=== PATIENT | female | born 1965 | race Two or more races ===

== ENCOUNTER 2020-06-18 06:27 | Inpatient (IN) | payer OTHER ==
[~2020-06-18] VITALS: Ht 162.6 cm; Wt 118.4 kg
--- NOTE | 2020-06-18 06:30 | NUR ---
PT NICOLA FROM HOME FOR LOW BLOOD SUGAR ON SCENE. PT GIVEN IM GLUCAGON EN ROUTE. PER PT'S ROOMMATE, PT NOT BEING ABLE TO EAT X COUPLE OF DAYS. PT AAOX4, VSS,RESPIRATIONS EVEN AND UNLABORED ON RA W/ NAD NOTED. PT CONNECTED TO THE ESCROW OFFICER AND POX
--- NOTE | 2020-06-18 06:48 | NUR ---
BLOOD COLLECTED AND SENT TO LAB
--- NOTE | 2020-06-18 06:52 | NUR ---
PT UNABLE TO PROVIDE URINE AT THIS TIME. MD LOAIZA
--- NOTE | 2020-06-18 06:56 | NUR ---
PT REFUSING TO TAKE JUICE AND SNACKS.
[2020-06-18 06:59] LABS: BASOPHILS % (AUTO) 0.2 % (0.0-2.0); EOSINOPHILS % (AUTO) 0.1 % (0.0-6.0); HEMATOCRIT 45 % (33-45); HEMOGLOBIN 14.6 g/dL (11.5-14.8); LYMPHOCYTES # (AUTO) 0.5 /CMM (0.8-4.8); LYMPHOCYTES % (AUTO) 11.4 % (20.0-44.0); MEAN CORPUSCULAR HGB CONC 33 g/dl (31.0-36.0); MEAN CORPUSCULAR VOLUME 104 fL (82-100); MONOCYTES # (AUTO) 0.4 /CMM (0.1-1.30); MONOCYTES % (AUTO) 10.4 % (2.0-12.0); NEUTROPHILS # (AUTO) 3.3 /CMM (1.8-8.9); NEUTROPHILS % (AUTO) 77.9 % (43.0-81.0); RED BLOOD CELL COUNT(AUTO) 4.28 MIL/uL (4.0-5.2); WHITE BLOOD COUNT (AUTO) 4.2 K/uL (4.3-11.0)
[2020-06-18] MEDS ORDERED: IV D5/ 0.9% NACL 1,000 ML IV ONE (07:00)
[2020-06-18 07:16] LABS: ALANINE AMINOTRANSFERASE 119 U/L (12-78); ALBUMIN 4.4 g/dL (3.4-5.0); ALCOHOL, BLOOD 92 mg/dL (0-0); ALKALINE PHOSPHATASE 87 U/L (46-116); ASPARTATE AMINOTRANSFERASE 316 U/L (15-37); BILIRUBIN,DIRECT 5.6 mg/dL (0.0-0.2); BILIRUBIN,TOTAL 7.5 mg/dL (0.2-1.0); CALCIUM, SERUM 9.5 mg/dL (8.5-10.1); CARBON DIOXIDE 19 mmol/L (21-32); CHLORIDE 84 mmol/L (98-107); CREATININE 0.6 mg/dL (0.6-1.3); POTASSIUM 3.6 mmol/L (3.5-5.1); SODIUM SERUM 129 mmol/L (136-145); TOTAL PROTEIN, SERUM 7.9 g/dL (6.4-8.2); UREA NITROGEN, BLOOD 7 mg/dL (7-18)
[2020-06-18 07:17] LABS: ACETAMINOPHEN 0 ug/ml (10-30); GLUCOSE 30 mg/dL (74-106)
[2020-06-18 07:30] LABS: PLATELET COUNT (AUTO) 44 /CMM (150-450)
--- NOTE | 2020-06-18 07:30 | NUR ---
LAB CALLED ANSELMO Chatman
[2020-06-18 07:32] LABS: LYMPHOCYTES % (MANUAL) 20 % (16-48); MONOCYTES % (MANUAL) 6 % (0-11.0); NEUTROPHILS % (MANUAL) 74 (42-76)
[2020-06-18] MEDS ORDERED: ALPR0.5T8 PO (08:25)
[2020-06-18] MEDS ORDERED: GABA-536 PO (08:25)
[2020-06-18] MEDS ORDERED: ESCI10TA PO (08:25)
[2020-06-18] MEDS ORDERED: ONDANSETRON HCL/PF - ER 4 MG/2 ML VIAL IV ONE (08:30)
--- NOTE | 2020-06-18 08:32 | NUR ---
COVID SWAB DONE AND SENT TO LAB
[2020-06-18] MEDS ORDERED: ONDANSETRON HCL/PF 4 MG/2 ML VIAL ONE (10:00)
--- NOTE | 2020-06-18 10:27 | NUR ---
pt still unable to provide urine specimen. pt tstates she doesnt feel the need to urinate at the moment,. made aware.
--- NOTE | 2020-06-18 11:20 | NUR ---
[facility] BED. 324-2
[2020-06-18] MEDS ORDERED: HYDROCODONE/APAP 5/325MG TABLET PO PRN (11:30)
[2020-06-18] MEDS: MULTIVITAMINS,THERAGRAN 1 UDTAB TABLET PO SCH (11:30)
[2020-06-18] MEDS: THIAMINE HCL 100 MG TABLET PO SCH (11:30)
[2020-06-18] MEDS ORDERED: ACETAMINOPHEN 325 MG TABLET PO PRN (11:30)
[2020-06-18] MEDS: FOLIC ACID 1 MG TABLET PO SCH (11:30)
[2020-06-18] MEDS ORDERED: MAGNESIUM HYDROXIDE 30 ML UDC PO PRN (11:30)
[2020-06-18] MEDS ORDERED: ONDANSETRON HCL/PF 4 MG/2 ML VIAL IVP PRN (11:30)
[2020-06-18] MEDS ORDERED: MAG HYDROX/AL HYDROX/SIMETH 30 ML UDC PO PRN (11:30)
[2020-06-18 12:10] LABS: BILIRUBIN,URINE LARGE (NEGATIVE); BLOOD, URINE Moderate Ery/uL (NEGATIVE); COLOR,URINE DARK YELLOW (YELLOW); LEUKOCYTE ESTERASE ,URINE Negative (NEGATIVE); NITRITE, URINE Negative (NEGATIVE); PROTEIN,URINE 30 mg/dl (NEGATIVE); UGLUCOSE Negative (NEGATIVE)
[2020-06-18 12:32] LABS: BACTERIA,URINE Moderate /HPF (None Seen); RBC,URINE 0-2 /HPF (0-2); WBC,URINE 0-2 /HPF (0-3)
--- NOTE | 2020-06-18 12:55 | NUR ---
SUSY LOPEZ CRE VEHICLE CARE SPECIALIST UPDATED WITH CLINICALS
[2020-06-18] MEDS: GABAPENTIN 400 MG CAPSULE PO SCH ×2 (13:00→17:45)
[2020-06-18] MEDS ORDERED: DEXTROSE 10% IN WATER 250 ML BAG IV ONE (13:00)
[2020-06-18] MEDS ORDERED: DEXTROSE 10% IN WATER 250 ML IV ONE (13:00)
--- NOTE | 2020-06-18 14:11 | NUR ---
bs rechecked now at 73
--- NOTE | 2020-06-18 14:30 | NUR ---
pt trasnferred to rm 324-2. yazan trammell rn by bedside,.
[2020-06-18] MEDS: IV D5/0.45 NACL 1,000 ML IV PRN (14:36)
[2020-06-18] MEDS: LORAZEPAM INJ 2 MG/ML VIAL IV PRN ×2 (14:43→22:41)
--- NOTE | 2020-06-18 14:45 | NUR ---
MS RN NOTES RECEIVED PATIENT FROM ER. PATIENT ALERT, ORIENTED X4. NO SOB OR ACUTE DISTRESS NOTES. PATIENT IS NAUSEAS AND VOMITING. PATIENT ORIENTED TO ROOM. CALL LIGHT WITHIN REACH. BED IN LOW LOCKED POSITION. SAFETY MEASURES IN PLACE. ADMINISTERED ZOFRAN AND STARTED ON IV FLUIDS. WILL CONTINUE TO MONITOR.
[2020-06-18 16:00] VITALS: BP 129/92
--- NOTE | 2020-06-18 18:51 | NUR ---
MS RN NOTES PATIENT IN BED RESTING NO SOB OR ACUTE DISTRESS NOTED. PATIENTS NAUSEA IMPROVED. PATIENT EATING DINNER. ALL DUE MEDICATIONS ADMINISTERED. ALL NEEDS MET. WILL ENDORSE CARE TO PM SHIFT.
--- NOTE | 2020-06-18 19:06 | NUR ---
MS RN OPENING NOTES PATIENT AWAKE IN BED. A/OX4. ON RA; NO C/O SOB; BREATHING IS EVEN AND UNLABORED. NO C/O PAIN. IV PRESENT ON RIGHT HAND, SIZE 22, INTACT & PATENT WITH D5 1/2 NS RUNNING AT 80 ML/HR. SAFETY MEASURES IN PLACE AND PATIENT'S NEEDS MET. BED LOCKED, HOB ELEVATED, SIDE RAILS X2, CALL LIGHT WITHIN REACH. WILL CONTINUE TO MONITOR.
[2020-06-18] MEDS: ALPRAZOLAM 0.5 MG TABLET PO PRN (19:42)
--- NOTE | 2020-06-19 07:52 | NUR ---
MS RN CLOSING NOTES PATIENT AWAKE IN BED. A/OX4. ON RA; NO C/O SOB; BREATHING IS EVEN AND UNLABORED. NO C/O PAIN. IV PRESENT ON LEFT FA, SIZE 24, INTACT & PATENT, HEP LOCKED AT THIS TIME. SAFETY MEASURES IN PLACE AND PATIENT'S NEEDS MET. BED LOCKED, HOB ELEVATED, SIDE RAILS X2, CALL LIGHT WITHIN REACH. ENDORSED TO DAY SHIFT RN PLAN OF CARE.
[2020-06-19 08:00] VITALS: BP 146/79
[2020-06-19 08:12] LABS: BASOPHILS % (AUTO) 0.4 % (0.0-2.0); EOSINOPHILS % (AUTO) 0.2 % (0.0-6.0); HEMATOCRIT 40 % (33-45); HEMOGLOBIN 13.5 g/dL (11.5-14.8); LYMPHOCYTES # (AUTO) 0.6 /CMM (0.8-4.8); LYMPHOCYTES % (AUTO) 20.9 % (20.0-44.0); MEAN CORPUSCULAR HGB CONC 34 g/dl (31.0-36.0); MEAN CORPUSCULAR VOLUME 101 fL (82-100); MONOCYTES # (AUTO) 0.4 /CMM (0.1-1.30); MONOCYTES % (AUTO) 14.9 % (2.0-12.0); NEUTROPHILS # (AUTO) 1.9 /CMM (1.8-8.9); NEUTROPHILS % (AUTO) 63.6 % (43.0-81.0); RED BLOOD CELL COUNT(AUTO) 4.01 MIL/uL (4.0-5.2)
[2020-06-19 08:22] LABS: PLATELET COUNT (AUTO) 37 /CMM (150-450)
[2020-06-19] MEDS: ESCITALOPRAM OXALATE (10 MG) 10 MG TABLET PO SCH (08:26)
[2020-06-19] MEDS: THIAMINE HCL 100 MG TABLET PO SCH (08:26)
[2020-06-19] MEDS: FOLIC ACID 1 MG TABLET PO SCH (08:26)
[2020-06-19] MEDS: MULTIVITAMINS,THERAGRAN 1 UDTAB TABLET PO SCH (08:26)
[2020-06-19] MEDS: GABAPENTIN 400 MG CAPSULE PO SCH ×3 (08:26→17:23)
--- NOTE | 2020-06-19 08:30 | NUR ---
RN NOTES CALL REPORTING FROM LAB REPORTING K: 2.6,PHOS : 0.5 AND PLT: 57 DR. ROLA CONTEH MADE AWARE STATES WILL PUT IN ORDERS.
[2020-06-19 08:38] LABS: ALBUMIN 3.7 g/dL (3.4-5.0); BILIRUBIN,TOTAL 7.4 mg/dL (0.2-1.0); CALCIUM, SERUM 9.6 mg/dL (8.5-10.1); MAGNESIUM 2.2 mg/dL (1.8-2.4); TOTAL PROTEIN, SERUM 6.7 g/dL (6.4-8.2)
[2020-06-19 08:46] LABS: THYROID STIMULATING HORMONE 2.788 uIU/mL (0.358-3.74)
[2020-06-19 09:50] LABS: PHOSPHORUS 0.5 mg/dL (2.5-4.9); POTASSIUM 2.6 mmol/L (3.5-5.1)
[2020-06-19] MEDS ORDERED: LORAZEPAM INJ 2 MG/ML VIAL IV PRN (11:00)
[2020-06-19] MEDS ORDERED: Thiamine 300 MG in IV D5W 50 ML IV ONE (11:30)
--- NOTE | 2020-06-19 13:21 | NUR ---
SW Consult: SW consult was requested due to substance abuse. Pt is a 54 year old female who was admitted at [facility] on 06/18/2020 due to Hypoglycemia. Patient appeared with euthymic mood. Patient was cooperative while this senior copywriter was conducting the assessment. Patient reported she lives at [address] [place] [address], ([phone]). Patient stated she lives with her roommate. Patient stated she has been struggling with alcohol abuse. She reported she has been drinking since the age 21 and has been on and off with her drinking. Patient stated it has become worse because of COVID 19 and losing her job. Patient denies suicidal or homicidal ideation. This senior copywriter briefly conducting substance Abuse Intervention and patient stated she would want resources from this SW. Patient was provided with a brief substance abuse intervention and referred to [facility] , [facility] , and [facility] .
[2020-06-19] MEDS: POTASSIUM PHOSPHATE MM 7.5 MMOL in IV NS 0.9% 100 ML IV SCH ×2 (13:22→17:00)
--- NOTE | 2020-06-19 13:26 | NUR ---
SW Substance Abuse Intervention: This functional tester typewriters briefly conducting substance Abuse Intervention and patient stated she would want resources from this SW. Patient was provided with a brief substance abuse intervention and referred to [facility] , [facility] , and [facility] .
--- NOTE | 2020-06-19 15:15 | NUR ---
MS RN NOTES MIDLINE NURSE AT BEDSIDE INSERTING MIDLINE AFTER MULTIPLE ATTEMPTS OF PERIPHERAL IV INSERTION.
[2020-06-19] MEDS: POTASSIUM CL. PREMIX PERIPHER. 50 ML IV SCH ×4 (15:36→21:00)
[2020-06-19 16:00] VITALS: BP 134/81
[2020-06-19] MEDS: K PHOS NEUTRAL 250 MG TABLET PO SCH (17:24)
--- NOTE | 2020-06-19 19:30 | NUR ---
MS RN NOTE: PATIENT RESTING IN BED, NO ACUTE DISTRESS NOTED. BREATHING EVEN AND UNLABORED, NO SOB NOTED. MIDLINE TO RUDDY IN PLACE, INFUSING D5 1/2 NS AT 80ML/HR. BED LOCKED AND IN LOWEST POSITION, CALL LIGHT IN REACH. WILL CONTINUE TO MONITOR.
[2020-06-19 20:00] VITALS: BP 124/81
--- NOTE | 2020-06-20 03:00 | NUR ---
MS RN NOTE: PATIENT SLEEPING IN BED, NO ACUTE DISTRESS NOTED. BREATHING EVEN AND UNLABORED, NO SOB NOTED. MIDLINE TO RUDDY IN PLACE, INFUSING D5 1/2 NS AT 80ML/HR. BED LOCKED AND IN LOWEST POSITION, CALL LIGHT IN REACH. WILL CONTINUE TO MONITOR.
--- NOTE | 2020-06-20 06:05 | NUR ---
MS RN NOTE: PATIENT RESTING IN BED, NO ACUTE DISTRESS NOTED. BREATHING EVEN AND UNLABORED, NO SOB NOTED. MIDLINE TO RUDDY IN PLACE, INFUSING D5 1/2 NS AT 80ML/HR. BED LOCKED AND IN LOWEST POSITION, CALL LIGHT IN REACH. WILL ENDORSE TO DAY NURSE TO CONTINUE WITH PLAN OF CARE.
--- NOTE | 2020-06-20 07:36 | NUR ---
MS RN NOTES PATIENT RECEIVED IN BED SLEEPING EASILY AWAKEN BY NAME AND LIGHT TOUCH, ALERT AND ORIENTED X 4, PATIENT ON ROOM AIR WITH NO SIGNS OF RESPIRATORY DISTRESS NOTED AT THIS TIME, WITH EVEN NON-LABORED BREATHING, WITH NO SOB NOTED. SKIN WARM AND DRY TO TOUCH, IV ACCESS INTACT AND PATENT. PATIENT PRESENTING WITH NO PAIN OR DISCOMFORT AT THIS TIME. SAFETY PRECAUTIONS IMPLEMENTED WITH BED LOCKED, BED ALARM ON, BED IN THE LOWEST POSITION, BILATERAL SIDE RAILS UP, AND CALL LIGHT WITHIN EASY REACH OF THE PATIENT. WILL CONTINUE TO MONITOR PATIENT.
[2020-06-20 08:00] VITALS: BP 144/86
[2020-06-20] MEDS: MULTIVITAMINS,THERAGRAN 1 UDTAB TABLET PO SCH (08:31)
[2020-06-20] MEDS: FOLIC ACID 1 MG TABLET PO SCH (08:31)
[2020-06-20 08:32] LABS: BASOPHILS % (AUTO) 0.4 % (0.0-2.0); EOSINOPHILS % (AUTO) 0.8 % (0.0-6.0); HEMATOCRIT 43 % (33-45); HEMOGLOBIN 14.4 g/dL (11.5-14.8); LYMPHOCYTES # (AUTO) 1.8 /CMM (0.8-4.8); LYMPHOCYTES % (AUTO) 43.3 % (20.0-44.0); MEAN CORPUSCULAR HGB CONC 33 g/dl (31.0-36.0); MEAN CORPUSCULAR VOLUME 101 fL (82-100); MONOCYTES # (AUTO) 0.6 /CMM (0.1-1.30); MONOCYTES % (AUTO) 13.4 % (2.0-12.0); NEUTROPHILS # (AUTO) 1.8 /CMM (1.8-8.9); NEUTROPHILS % (AUTO) 42.1 % (43.0-81.0); RED BLOOD CELL COUNT(AUTO) 4.27 MIL/uL (4.0-5.2); WHITE BLOOD COUNT (AUTO) 4.2 K/uL (4.3-11.0)
[2020-06-20] MEDS: THIAMINE HCL 100 MG TABLET PO SCH (08:32)
[2020-06-20] MEDS: GABAPENTIN 400 MG CAPSULE PO SCH ×3 (08:33→16:21)
[2020-06-20] MEDS: K PHOS NEUTRAL 250 MG TABLET PO SCH ×2 (08:33→16:21)
[2020-06-20] MEDS: ESCITALOPRAM OXALATE (10 MG) 10 MG TABLET PO SCH (08:33)
[2020-06-20] MEDS: IV D5/0.45 NACL 1,000 ML IV PRN (08:33)
[2020-06-20 08:44] LABS: ALBUMIN 3.8 g/dL (3.4-5.0); BILIRUBIN,TOTAL 6.3 mg/dL (0.2-1.0); CALCIUM, SERUM 9.8 mg/dL (8.5-10.1); CREATININE 0.9 mg/dL (0.6-1.3); MAGNESIUM 2.2 mg/dL (1.8-2.4); TOTAL PROTEIN, SERUM 7.1 g/dL (6.4-8.2)
[2020-06-20 08:54] LABS: PLATELET COUNT (AUTO) 46 /CMM (150-450)
[2020-06-20 09:51] LABS: POTASSIUM 2.8 mmol/L (3.5-5.1)
[2020-06-20 09:52] LABS: PHOSPHORUS 0.9 mg/dL (2.5-4.9)
--- NOTE | 2020-06-20 11:20 | NUR ---
MS RN NOTES INFORMED HOSPITALIST ROLA CONTEH DNP, ABOUT PATIENT'S POTASSIUM OF 2.8, AND PHOSPHORUS 0.9, AND PLATELET OF 46. ORDERED POTASSIUM CHLORIDE, 40 MEQ, AND POTASSIUM PHOSPHATE, WILL CARRY OUT ORDERS AND CONTINUE TO MONITOR PATIENT.
[2020-06-20] MEDS: POTASSIUM PHOSPHATE MM 7.5 MMOL in IV NS 0.9% 100 ML IV SCH ×2 (12:47→15:41)
[2020-06-20] MEDS: POTASSIUM CL. PREMIX PERIPHER. 50 ML IV SCH ×4 (12:47→15:58)
[2020-06-20 16:00] VITALS: BP 132/57
--- NOTE | 2020-06-20 16:22 | NUR ---
MS RN NOTES ADMINISTERED INFLUENZA VACCINE PATIENT REQUESTED.
[2020-06-20] MEDS ORDERED: INFLUENZA VACCINE 2020-21 0.5 ML DISP.SYRIN IM ONE (17:00)
--- NOTE | 2020-06-20 18:00 | NUR ---
MS RN NOTES TOOK STOOL SPECIMEN TO LABORATORY.
--- NOTE | 2020-06-20 18:28 | NUR ---
MS RN NOTES PATIENT IN BED RESTING COMFORTABLY, ALERT AND ORIENTED X 4, PATIENT ON ROOM AIR WITH NO SIGNS OF RESPIRATORY DISTRESS NOTED AT THIS TIME, WITH EVEN NON-LABORED BREATHING, WITH NO SOB NOTED. SKIN KEPT CLEAN, WARM AND DRY TO TOUCH, IV ACCESS INTACT AND PATENT. PATIENT PRESENTING WITH NO PAIN OR DISCOMFORT AT THIS TIME. MET ALL OF PATIENT'S NEEDS. SAFETY PRECAUTIONS IMPLEMENTED WITH BED LOCKED, BED ALARM ON, BED IN THE LOWEST POSITION, BILATERAL SIDE RAILS UP, AND CALL LIGHT WITHIN EASY REACH OF THE PATIENT. WILL ENDORSE PLAN OF CARE TO UPCOMING RN.
[2020-06-20 20:00] VITALS: BP 119/76
[2020-06-20 22:25] VITALS: BP 126/78
--- NOTE | 2020-06-21 02:00 | NUR ---
RN NOTES: PT. REFUSED D5 1/2 NS 80 ML HR ,ENCOURAGED X3 RISKS AND BENEFITS EXPLINED , CHARGE NURSE MADE AWRE ,PER I DONT WANTS ANY IV FLUIDS I AM OK AND IV FLUIDS MAKING ME SICK ,PT. STRONGLY REDUSED , AND ENCOURAGED PT. TO DRINKS PO FLUIDS ,WILL CONTINUITY WITH CARE.
--- NOTE | 2020-06-21 06:54 | NUR ---
MS RN NOTE: PATIENT RESTING IN BED, NO ACUTE DISTRESS NOTED. BREATHING EVEN AND UNLABORED, NO SOB NOTED. MIDLINE TO RUDDY IN PLACE, ALL NEEDS ATTENDED ANTICIPATED.ENCOURAGED PT. TO TAKE ORAL FLUIDS TOLERATE, BED LOCKED AND IN LOWEST POSITION, CALL LIGHT IN REACH. WILL CONTINUE TO MONITOR.
--- NOTE | 2020-06-21 07:35 | NUR ---
MS RN NOTES PATIENT RECEIVED IN BED SLEEPING EASILY AWAKEN BY NAME AND LIGHT TOUCH, ALERT AND ORIENTED X 4, PATIENT ON ROOM AIR WITH NO SIGNS OF RESPIRATORY DISTRESS NOTED AT THIS TIME, WITH EVEN NON-LABORED BREATHING, WITH NO SOB NOTED. SKIN WARM AND DRY TO TOUCH, IV ACCESS INTACT AND PATENT. PATIENT CURRENTLY REFUSING IV FLUIDS, WILL RE-EDUCATED THE IMPORTANCE AND EXPLAINED BENEFITS OF IV FLUIDS. PATIENT PRESENTING WITH NO PAIN OR DISCOMFORT AT THIS TIME. SAFETY PRECAUTIONS IMPLEMENTED WITH BED LOCKED, BED ALARM ON, BED IN THE LOWEST POSITION, BILATERAL SIDE RAILS UP, AND CALL LIGHT WITHIN EASY REACH OF THE PATIENT. WILL CONTINUE TO MONITOR PATIENT.
[2020-06-21 07:41] LABS: BASOPHILS % (AUTO) 0.9 % (0.0-2.0); EOSINOPHILS % (AUTO) 2.5 % (0.0-6.0); HEMATOCRIT 36 % (33-45); HEMOGLOBIN 12.3 g/dL (11.5-14.8); LYMPHOCYTES % (AUTO) 41.1 % (20.0-44.0); MEAN CORPUSCULAR HGB CONC 34 g/dl (31.0-36.0); MEAN CORPUSCULAR VOLUME 101 fL (82-100); MONOCYTES # (AUTO) 0.4 /CMM (0.1-1.30); MONOCYTES % (AUTO) 15.7 % (2.0-12.0); NEUTROPHILS # (AUTO) 0.9 /CMM (1.8-8.9); NEUTROPHILS % (AUTO) 39.8 % (43.0-81.0); RED BLOOD CELL COUNT(AUTO) 3.58 MIL/uL (4.0-5.2); WHITE BLOOD COUNT (AUTO) 2.3 K/uL (4.3-11.0)
[2020-06-21 07:44] LABS: PLATELET COUNT (AUTO) 50 /CMM (150-450)
[2020-06-21 08:00] VITALS: BP 107/60
[2020-06-21 08:30] VITALS: BP 107/60
[2020-06-21 08:32] LABS: ALBUMIN 3.1 g/dL (3.4-5.0); BILIRUBIN,TOTAL 4.1 mg/dL (0.2-1.0); CREATININE 0.8 mg/dL (0.6-1.3); MAGNESIUM 1.8 mg/dL (1.8-2.4); PHOSPHORUS 1.1 mg/dL (2.5-4.9); TOTAL PROTEIN, SERUM 5.9 g/dL (6.4-8.2)
[2020-06-21] MEDS: K PHOS NEUTRAL 250 MG TABLET PO SCH (08:36)
[2020-06-21] MEDS: MULTIVITAMINS,THERAGRAN 1 UDTAB TABLET PO SCH (08:36)
[2020-06-21] MEDS: ESCITALOPRAM OXALATE (10 MG) 10 MG TABLET PO SCH (08:36)
[2020-06-21] MEDS: GABAPENTIN 400 MG CAPSULE PO SCH ×3 (08:36→17:10)
[2020-06-21] MEDS: FOLIC ACID 1 MG TABLET PO SCH (08:36)
[2020-06-21] MEDS: THIAMINE HCL 100 MG TABLET PO SCH (08:37)
[2020-06-21 08:59] LABS: POTASSIUM 2.6 mmol/L (3.5-5.1)
[2020-06-21 09:02] LABS: EOSINOPHILS % (MANUAL) 3 % (0-4); LYMPHOCYTES % (MANUAL) 45 % (16-48); MONOCYTES % (MANUAL) 13 % (0-11.0); NEUTROPHILS % (MANUAL) 39 (42-76)
[2020-06-21] MEDS ORDERED: POTASSIUM CL. PREMIX PERIPHER. 50 ML IV SCH (10:00)
[2020-06-21] MEDS ORDERED: POTASSIUM PHOSPHATE MM 15 MMOL in IV NS 0.9% 250 ML IV SCH (10:00)
--- NOTE | 2020-06-21 10:00 | NUR ---
MS RN NOTES INFORMED MD, DR. HOLCOMB, ABOUT PATIENT'S POTASSIUM OF 2.6, AND PHOSPHORUS 1.1. ORDERED POTASSIUM CHLORIDE, 60 MEQ, AND POTASSIUM PHOSPHATE 15 mmol, WILL CARRY OUT ORDERS AND CONTINUE TO MONITOR PATIENT.
[2020-06-21] MEDS: Potassium Chloride 10 MEQ, LIDOCAINE HCL/PF 1% 1 ML in IV D5W 50 ML IV SCH ×6 (11:49→17:43)
[2020-06-21] MEDS: IV D5/0.45 NACL 1,000 ML IV PRN (11:51)
[2020-06-21 16:00] VITALS: BP 128/81
[2020-06-21 16:48] LABS: CHLORIDE,URINE RANDOM 114 mmol/L (55-125); POTASSIUM RNDM,URINE 36 mmol/L (25-125); URINE SODIUM, RANDOM 18 mmol/l (40-220)
--- NOTE | 2020-06-21 19:55 | NUR ---
MS RN NOTE: PATIENT RESTING IN BED, NO ACUTE DISTRESS NOTED. BREATHING EVEN AND UNLABORED, NO SOB NOTED. MIDLINE TO RUDDY IN PLACE, IV SITE INTACT. BED LOCKED AND IN LOWEST POSITION, CALL LIGHT IN REACH. WILL CONTINUE TO MONITOR.
[2020-06-21 20:00] VITALS: BP 134/72
--- NOTE | 2020-06-21 21:30 | NUR ---
MS RN NOTES HARITHA WOO CANINE SERVICE INSTRUCTOR TRAINER IS IN UNIT . NOTIFIED OF PT. TEMPERATURES 99.8 , PER HER STATES KEEP MONITOR, NO NEW ORDES GIVEN , WILL CONTINUE TO MONITOR.
[2020-06-21 23:20] LABS: OSMOLALITY,URINE 525 mOS/kg (340-1090)
--- NOTE | 2020-06-22 01:00 | NUR ---
RN NOTES: PT. REFUSED D5 1/2 NS 80 ML HR ,ENCOURAGED X3 RISKS AND BENEFITS EXPLINED , CHARGE NURSE MADE AWRE ,PER I DONT WANTS ANY IV FLUIDS ,AND IV FLUIDS MAKING ME SICK ,PT. STRONGLY REDUSED , AND ENCOURAGED PT. TO DRINKS PO FLUIDS ,WILL CONTINUITY WITH CARE.
[2020-06-22 06:15] LABS: BASOPHILS % (AUTO) 1.5 % (0.0-2.0); EOSINOPHILS % (AUTO) 0.5 % (0.0-6.0); HEMATOCRIT 38 % (33-45); HEMOGLOBIN 12.8 g/dL (11.5-14.8); LYMPHOCYTES # (AUTO) 0.3 /CMM (0.8-4.8); LYMPHOCYTES % (AUTO) 28.4 % (20.0-44.0); MEAN CORPUSCULAR HGB CONC 34 g/dl (31.0-36.0); MEAN CORPUSCULAR VOLUME 102 fL (82-100); MONOCYTES # (AUTO) 0.2 /CMM (0.1-1.30); MONOCYTES % (AUTO) 24.8 % (2.0-12.0); NEUTROPHILS # (AUTO) 0.4 /CMM (1.8-8.9); NEUTROPHILS % (AUTO) 44.8 % (43.0-81.0); RED BLOOD CELL COUNT(AUTO) 3.72 MIL/uL (4.0-5.2)
--- NOTE | 2020-06-22 06:41 | NUR ---
MS RN CLOSING NOTES: PATIENT ASLEEP SOUNDLY IN THE ROOM, IV SITE INTACT.NO ACUTE DISTRESS NOTED, NO CHANGE OF CONDITION NOTED, NO COMPLAINS OF PAIN AT THIS TIME, PT. REMAINED TEMPERATURES STABLE IN SHIFT, WILL ENDORSE PATIENT DAY SHIFT NURSE FOR CONTINUITY OF CARE.
[2020-06-22 07:08] LABS: CALCIUM, SERUM 8.6 mg/dL (8.5-10.1); CREATININE 0.6 mg/dL (0.6-1.3); PHOSPHORUS 1.1 mg/dL (2.5-4.9); POTASSIUM 2.9 mmol/L (3.5-5.1)
[2020-06-22 08:00] VITALS: BP 126/81
[2020-06-22] MEDS ORDERED: DEXTROSE 50%-WATER 50 ML DISP.SYRIN IV PRN (08:00)
[2020-06-22 08:05] LABS: PLATELET COUNT (AUTO) 50 /CMM (150-450); WHITE BLOOD COUNT (AUTO) 0.9 K/uL (4.3-11.0)
[2020-06-22] MEDS: GABAPENTIN 400 MG CAPSULE PO SCH ×3 (08:21→16:43)
[2020-06-22] MEDS: MULTIVITAMINS,THERAGRAN 1 UDTAB TABLET PO SCH (08:21)
[2020-06-22] MEDS: ESCITALOPRAM OXALATE (10 MG) 10 MG TABLET PO SCH (08:21)
[2020-06-22] MEDS: THIAMINE HCL 100 MG TABLET PO SCH (08:21)
[2020-06-22] MEDS: BLOOD SUGAR DIAGNOSTIC 1 EACH STRIP IN SCH ×5 (08:21→21:13)
[2020-06-22] MEDS: FOLIC ACID 1 MG TABLET PO SCH (08:21)
--- NOTE | 2020-06-22 08:28 | NUR ---
RN OPENING NOTE Patient is resting in bed, A/o x4, showing no signs of acute distress or SOB, stable on RA. IV lie in the RUDDY is clean and intact flushing well. Patient is refusing to have IV at this time. Accu-check done and BS is 116. NO coverage ordered per MD. Bed is in lowest position, side rails x2 in upright position, call light is within reach, fall safety and aspiration precautions enforced. Will continue with plan of care.
--- NOTE | 2020-06-22 08:50 | NUR ---
RN NOTE Notified Bhumi Roa NP of lab results: WBC 0.9 PLT50 POTASSIUM 2.9 Received T.O. for K replacement [id number] bags. Orders repeated back and will carry out.
[2020-06-22] MEDS ORDERED: POTASSIUM CL. PREMIX PERIPHER. 50 ML IV SCH (09:00)
[2020-06-22 09:42] LABS: LYMPHOCYTES % (MANUAL) 41 % (16-48); MONOCYTES % (MANUAL) 7 % (0-11.0); NEUTROPHILS % (MANUAL) 51 (42-76)
[2020-06-22 09:43] LABS: EOSINOPHILS % (MANUAL) 1 % (0-4)
[2020-06-22] MEDS ORDERED: Potassium Chloride 10 MEQ, LIDOCAINE HCL/PF 1% 1 ML in IV D5W 50 ML IV SCH (11:00)
--- NOTE | 2020-06-22 12:58 | NUR ---
RN NOTE Patient continues to c/o discomfort when receiving IV potassium replacement with lidocaine. OK for PLANT CUSTODIAN to change to PO.
[2020-06-22] MEDS ORDERED: POTASSIUM CHLORIDE 20 MEQ TAB.PRT.SR PO ONE (13:00)
[2020-06-22] MEDS ORDERED: K PHOS NEUTRAL 250 MG TABLET PO ONE (14:00)
--- NOTE | 2020-06-22 14:56 | NUR ---
RN NOTE Patient is requesting for antidiarrheal medication d/t BM frequency, soft, brown. Notified MD and received order for Imodium 2mg PO q6 PRN.
[2020-06-22] MEDS ORDERED: LOPERAMIDE HCL (2 MG CAP) 2 MG CAPSULE PO PRN (15:00)
[2020-06-22] MEDS: CEFEPIME 2 GM in IV D5W 100 ML IV SCH ×2 (15:14→22:07)
[2020-06-22] MEDS: TBO-FILGRASTIM 300 MCG/0.5 ML SYRINGE SQ SCH (15:34)
[2020-06-22 16:00] VITALS: BP 136/86
--- NOTE | 2020-06-22 17:00 | NUR ---
RN NOTE Patient presents with temp of 99.5 F, patient states that she often experiences hot flashes. Cooling measures implemented and temp went down to 98.8F. Oncology is following and they are aware of patient's temp. Will continue with plan of care.
[2020-06-22 17:29] LABS: BILIRUBIN,DIRECT 2.6 mg/dL (0.0-0.2); BILIRUBIN,TOTAL 3.1 mg/dL (0.2-1.0); TOTAL PROTEIN, SERUM 5.9 g/dL (6.4-8.2)
--- NOTE | 2020-06-22 18:56 | NUR ---
RN CLOSING NOTE Patient is resting in bed, A/o x4, showing no signs of acute distress or SOB, stable on RA. IV line in the RUDDY is clean and intact flushing well. Patient is refusing to have IVF at this time. Blood sugar monitored during shift--remains stable. NO coverage ordered per MD. Patient able to use BSC and ambulate to bathroom. All patient needs met, all due medications given, patient kept clean and dry throughout shift. Bed is in lowest position, side rails x2 in upright position, call light is within reach, fall safety and aspiration precautions enforced. Will endorse to night monitor for SOSA.
[2020-06-22 20:00] VITALS: BP 119/87
[2020-06-22 21:00] VITALS: BP 128/70
[2020-06-23] MEDS: BLOOD SUGAR DIAGNOSTIC 1 EACH STRIP IN SCH ×6 (01:04→21:32)
[2020-06-23] MEDS: CEFEPIME 2 GM in IV D5W 100 ML IV SCH ×3 (06:12→23:23)
--- NOTE | 2020-06-23 06:50 | NUR ---
MS RN NOTES: PATIENT ASLEEP SOUNDLY IN THE ROOM, .NO ACUTE DISTRESS NOTED, NO CHANGE OF CONDITION NOTED, ALL NEEDS ATTENDED AND ANTICIPATED ,WILL ENDORSE PATIENT DAY SHIFT NURSE FOR CONTINUITY OF CARE.
[2020-06-23 08:00] VITALS: BP 115/81
[2020-06-23 08:23] LABS: BASOPHILS % (AUTO) 0.4 % (0.0-2.0); EOSINOPHILS % (AUTO) 0.3 % (0.0-6.0); HEMATOCRIT 38 % (33-45); HEMOGLOBIN 12.6 g/dL (11.5-14.8); LYMPHOCYTES # (AUTO) 0.7 /CMM (0.8-4.8); LYMPHOCYTES % (AUTO) 20.3 % (20.0-44.0); MEAN CORPUSCULAR HGB CONC 33 g/dl (31.0-36.0); MEAN CORPUSCULAR VOLUME 103 fL (82-100); MONOCYTES # (AUTO) 0.7 /CMM (0.1-1.30); NEUTROPHILS # (AUTO) 2.1 /CMM (1.8-8.9); PLATELET COUNT (AUTO) 59 /CMM (150-450); RED BLOOD CELL COUNT(AUTO) 3.69 MIL/uL (4.0-5.2); WHITE BLOOD COUNT (AUTO) 3.6 K/uL (4.3-11.0)
[2020-06-23] MEDS: THIAMINE HCL 100 MG TABLET PO SCH (08:44)
[2020-06-23] MEDS: MULTIVITAMINS,THERAGRAN 1 UDTAB TABLET PO SCH (08:44)
[2020-06-23] MEDS: GABAPENTIN 400 MG CAPSULE PO SCH ×3 (08:44→16:07)
[2020-06-23] MEDS: FOLIC ACID 1 MG TABLET PO SCH (08:44)
[2020-06-23] MEDS: ESCITALOPRAM OXALATE (10 MG) 10 MG TABLET PO SCH (08:44)
[2020-06-23 09:26] LABS: ALBUMIN 2.8 g/dL (3.4-5.0); BILIRUBIN,TOTAL 2.4 mg/dL (0.2-1.0); CALCIUM, SERUM 8.5 mg/dL (8.5-10.1); CREATININE 0.6 mg/dL (0.6-1.3); MAGNESIUM 1.5 mg/dL (1.8-2.4); PHOSPHORUS 2.1 mg/dL (2.5-4.9); TOTAL PROTEIN, SERUM 5.7 g/dL (6.4-8.2)
[2020-06-23 09:29] LABS: POTASSIUM 2.7 mmol/L (3.5-5.1)
--- NOTE | 2020-06-23 09:38 | NUR ---
RN NOTE Per MD, to replace potassium of 2.7 with 40 meq potassium PO now and potassium 40 meq PO at 1700. Orders repeated back and will carry out.
[2020-06-23] MEDS ORDERED: POTASSIUM CHLORIDE 20 MEQ TAB.PRT.SR PO ONE ×2 (10:00→17:00)
--- NOTE | 2020-06-23 13:40 | NUR ---
RN OPENING NOTE Patient is resting in bed, A/o x4, showing no signs of acute distress or SOB, stable on RA. IV line in the RUDDY is clean and intact flushing well. Patient able to use BSC and ambulate to bathroom. Bed is in lowest position, side rails x2 in upright position, call light is within reach, fall safety and aspiration precautions enforced. Will continue with plan of care.
[2020-06-23] MEDS ORDERED: NEUTRA PHOS 1 POWD.PACKET PO ONE (15:00)
[2020-06-23 16:00] VITALS: BP 113/73
[2020-06-23] MEDS: TBO-FILGRASTIM 300 MCG/0.5 ML SYRINGE SQ SCH (16:07)
[2020-06-23 17:30] LABS: BAND % (MANUAL) 3 % (0.0-5.0); LYMPHOCYTES % (MANUAL) 24 % (16-48); MONOCYTES % (MANUAL) 15 % (0-11.0); NEUTROPHILS % (MANUAL) 56 (42-76); REACTIVE LYMPHOCYTES 2 % (0-0)
--- NOTE | 2020-06-23 19:15 | NUR ---
RN CLOSING NOTE Patient is resting in bed, A/o x4, showing no signs of acute distress or SOB, stable on RA. IV line in the RUDDY is clean and intact flushing well. Blood sugar monitored during shift--remains stable. NO coverage ordered per MD. Patient able to use BSC and ambulate to bathroom. All patient needs met, all due medications given, patient kept clean and dry throughout shift. Bed is in lowest position, side rails x2 in upright position, call light is within reach, fall safety and aspiration precautions enforced. Will endorse to neck band setter for SOS[facility].
--- NOTE | 2020-06-23 19:57 | NUR ---
RN MS OPENING NOTE Patient is resting in bed, A/o x4, showing no signs of acute distress or SOB, stable on RA. IV line on LAC #18g patent and intact. Denies pain or discomfort at this time. Bed in lowest position, side rails x2 in upright position. Call light is within reach. Fall safety and aspiration precautions enforced. Will continue with plan of care.
[2020-06-23 20:00] VITALS: BP 112/67
[2020-06-24] MEDS: ALPRAZOLAM 0.5 MG TABLET PO PRN (00:09)
--- NOTE | 2020-06-24 00:09 | NUR ---
MS-RN NOTE: PATIENT C/O FEELING ANXIOUS. ADMINISTERED XANAX 0.5MG PO ORDERED. WILL CONTINUE TO MONITOR PATIENT'S SAFETY.
[2020-06-24] MEDS: BLOOD SUGAR DIAGNOSTIC 1 EACH STRIP IN SCH ×6 (01:10→22:09)
[2020-06-24] MEDS: CEFEPIME 2 GM in IV D5W 100 ML IV SCH ×3 (06:16→22:07)
--- NOTE | 2020-06-24 06:36 | NUR ---
RN MS CLOSING NOTE Patient in bed asleep, arouses easily. A/ox4, showing no signs of acute distress or SOB, stable on RA. IV line on RUDDY 24g patent and intact. Denies pain or discomfort at this time. Bed in lowest position, side rails x2 in upright position. Call light is within reach. Fall safety and aspiration precautions enforced. Will endorse to the day shift nurse for continuity of care.
[2020-06-24 06:46] LABS: BASOPHILS % (AUTO) 0.5 % (0.0-2.0); EOSINOPHILS % (AUTO) 0.9 % (0.0-6.0); HEMATOCRIT 38 % (33-45); HEMOGLOBIN 12.4 g/dL (11.5-14.8); LYMPHOCYTES # (AUTO) 1.2 /CMM (0.8-4.8); LYMPHOCYTES % (AUTO) 24.3 % (20.0-44.0); MEAN CORPUSCULAR HGB CONC 33 g/dl (31.0-36.0); MEAN CORPUSCULAR VOLUME 102 fL (82-100); MONOCYTES # (AUTO) 1.3 /CMM (0.1-1.30); MONOCYTES % (AUTO) 26.2 % (2.0-12.0); NEUTROPHILS # (AUTO) 2.4 /CMM (1.8-8.9); NEUTROPHILS % (AUTO) 48.1 % (43.0-81.0); PLATELET COUNT (AUTO) 62 /CMM (150-450); RED BLOOD CELL COUNT(AUTO) 3.66 MIL/uL (4.0-5.2); WHITE BLOOD COUNT (AUTO) 4.9 K/uL (4.3-11.0)
[2020-06-24 08:00] VITALS: BP 114/66
[2020-06-24 08:00] LABS: CALCIUM, SERUM 8.8 mg/dL (8.5-10.1); CREATININE 0.7 mg/dL (0.6-1.3); PHOSPHORUS 2.7 mg/dL (2.5-4.9); POTASSIUM 3.1 mmol/L (3.5-5.1)
[2020-06-24] MEDS: GABAPENTIN 400 MG CAPSULE PO SCH ×3 (09:09→16:44)
[2020-06-24] MEDS: MULTIVITAMINS,THERAGRAN 1 UDTAB TABLET PO SCH (09:09)
[2020-06-24] MEDS: FOLIC ACID 1 MG TABLET PO SCH (09:09)
[2020-06-24] MEDS: ESCITALOPRAM OXALATE (10 MG) 10 MG TABLET PO SCH (09:09)
[2020-06-24] MEDS: THIAMINE HCL 100 MG TABLET PO SCH (09:09)
[2020-06-24 09:12] LABS: IMMUNOGLOBULIN A, SERUM 209 mg/dL (87-352); IMMUNOGLOBULIN G, SERUM 685 mg/dL (586-1602); IMMUNOGLOBULIN M, SERUM 247 mg/dL (26-217)
[2020-06-24] MEDS: POTASSIUM CHLORIDE 20 MEQ TAB.PRT.SR PO SCH ×2 (12:05→16:44)
[2020-06-24 12:30] LABS: BAND % (MANUAL) 3 % (0.0-5.0); EOSINOPHILS % (MANUAL) 1 % (0-4); LYMPHOCYTES % (MANUAL) 24 % (16-48); MONOCYTES % (MANUAL) 20 % (0-11.0); NEUTROPHILS % (MANUAL) 51 (42-76); REACTIVE LYMPHOCYTES 1 % (0-0)
[2020-06-24] MEDS ORDERED: POTASSIUM CHLORIDE 20 MEQ TAB.PRT.SR PO ONE (16:43)
--- NOTE | 2020-06-24 16:58 | NUR ---
RN NOTE Confirmed with pharmacy that for a potassium of 3.1 only 40meq needed to replaced. Non-admin order of additional 20 meq ordered.
--- NOTE | 2020-06-24 19:00 | NUR ---
RN MS OPENING NOTES RECEIVED PATIENT IN BED AWAKE ALERT AND ORIENTED X4 RESPIRATIONS EVEN AND UNLABORED WITH EQUAL RISE AND FALL OF CHEST, DENIES ANY PAIN OR DISCOMFORT AT THIS TIME, LEFT UPPER ARM MIDLINE INTACT AND PATENT, NO REDNESS NO INFILTRATION PRESENT, DRESSING CHANGED WAS COMING OFF, STERILE NEW APPLICATION DONE, LEFT AC IV SITE REMOVED, COMING OFF, ORIENTED TO STAFF AND CALL LIGHT AND KEPT WITHIN REACH, LOW BED AND LOCKED, ALL NEEDS ATTENDED AT THIS TIME WILL CONTINUE TO MONITOR AND ATTEND TO NEEDS.
--- NOTE | 2020-06-24 19:18 | NUR ---
RN CLOSING NOTE Patient is resting in bed, A/o x4, showing no signs of acute distress or SOB, stable on RA. IV line in the RUDDY is clean and intact flushing well. Blood sugar monitored during shift--remains stable. NO coverage ordered per MD. Patient able to use BSC and ambulate to bathroom. All patient needs met, all due medications given, patient kept clean and dry throughout shift. Bed is in lowest position, side rails x2 in upright position, call light is within reach, fall safety and aspiration precautions enforced. Will endorse to material handler 2nd shift for [facility].
[2020-06-24 20:00] VITALS: BP 115/65
[2020-06-24 20:17] VITALS: BP 115/65
[2020-06-25] MEDS: BLOOD SUGAR DIAGNOSTIC 1 EACH STRIP IN SCH ×6 (01:32→21:41)
[2020-06-25] MEDS: CEFEPIME 2 GM in IV D5W 100 ML IV SCH ×3 (06:03→22:30)
--- NOTE | 2020-06-25 06:24 | NUR ---
rn ms closing notes patient in bed awake alert and oriented x4, respirations even and unlabored with equal rise and fall of chest, denies any pain or discomfort iv access midline to left upper arm, intact and patent, no redness, no infiltration dressing changed to midline sterile technique intact,all needs attended reminded patient to collect specimen for ua, all needs attended call light kept within reach, will continue to monitor and endorse to next shift.
[2020-06-25 07:35] LABS: BASOPHILS % (AUTO) 0.4 % (0.0-2.0); EOSINOPHILS % (AUTO) 1.2 % (0.0-6.0); HEMATOCRIT 38 % (33-45); HEMOGLOBIN 12.7 g/dL (11.5-14.8); LYMPHOCYTES # (AUTO) 1.2 /CMM (0.8-4.8); LYMPHOCYTES % (AUTO) 25.8 % (20.0-44.0); MEAN CORPUSCULAR HGB CONC 33 g/dl (31.0-36.0); MEAN CORPUSCULAR VOLUME 103 fL (82-100); MONOCYTES # (AUTO) 1.1 /CMM (0.1-1.30); MONOCYTES % (AUTO) 24.2 % (2.0-12.0); NEUTROPHILS # (AUTO) 2.2 /CMM (1.8-8.9); NEUTROPHILS % (AUTO) 48.4 % (43.0-81.0); PLATELET COUNT (AUTO) 90 /CMM (150-450); RED BLOOD CELL COUNT(AUTO) 3.69 MIL/uL (4.0-5.2); WHITE BLOOD COUNT (AUTO) 4.6 K/uL (4.3-11.0)
[2020-06-25 07:58] LABS: CALCIUM, SERUM 8.6 mg/dL (8.5-10.1); CREATININE 0.7 mg/dL (0.6-1.3); POTASSIUM 3.3 mmol/L (3.5-5.1)
[2020-06-25 08:00] VITALS: BP 100/65
[2020-06-25] MEDS: MULTIVITAMINS,THERAGRAN 1 UDTAB TABLET PO SCH (09:06)
[2020-06-25] MEDS: ESCITALOPRAM OXALATE (10 MG) 10 MG TABLET PO SCH (09:06)
[2020-06-25] MEDS: THIAMINE HCL 100 MG TABLET PO SCH (09:06)
[2020-06-25] MEDS: GABAPENTIN 400 MG CAPSULE PO SCH ×3 (09:06→17:23)
[2020-06-25] MEDS: FOLIC ACID 1 MG TABLET PO SCH (09:06)
[2020-06-25] MEDS ORDERED: POTASSIUM CHLORIDE 20 MEQ TAB.PRT.SR PO SCH (11:00)
[2020-06-25 11:09] LABS: ALBUMIN 2.5 g/dL (3.4-5.0); BILIRUBIN,DIRECT 1.1 mg/dL (0.0-0.2); BILIRUBIN,TOTAL 1.5 mg/dL (0.2-1.0); TOTAL PROTEIN, SERUM 5.5 g/dL (6.4-8.2)
--- NOTE | 2020-06-25 13:25 | NUR ---
MS RN NOTES PATIENT RESTING COMFORTABLY IN BED, ENDORSED PLAN OF CARE TO NAHOMI LITTLE.
[2020-06-25] MEDS ORDERED: LACTULOSE 10 G/15 ML UDC (PYXIS) PO PRN (13:30)
--- NOTE | 2020-06-25 13:30 | NUR ---
PT RECEIVED AFTER REPORT RECEIVED FROM ANIL COMER. PT RESTING COMFORTABLY IN BED WITH EYES CLOSED. NO S/S OR C/O PAIN OR DISTRESS NOTED. SIDE RAILS UP X2, CALL LIGHT LEFT WITHIN REACH. WILL CONTINUE PLAN OF CARE.
[2020-06-25 16:03] VITALS: BP 96/48
[2020-06-25 17:36] LABS: CHLORIDE,URINE RANDOM 115 mmol/L (55-125); POTASSIUM RNDM,URINE 86 mmol/L (25-125); URINE SODIUM, RANDOM 24 mmol/l (40-220)
--- NOTE | 2020-06-25 19:59 | NUR ---
CHANGE OF SHIFT REPORT PT RESTING COMFORTABLY IN BED WITH EYES CLOSED. NO S/S OR C/O PAIN OR DISTRESS NOTED. SIDERAILS UP X2, CALL LIGHT LEFT WITHIN REACH. PT KEPT CLEAN, DRY, AND COMFORTABLE. NO SIGNIFICANT CHANGES SINCE PREVIOUS SHIFT. REPORT GIVEN TO JUAREZ RN
[2020-06-25 20:00] VITALS: BP 106/60
--- NOTE | 2020-06-25 20:00 | NUR ---
OPENING NOTE: Patient in bed resting comfortably, awake, alert, and oriented x4, able to make needs known. Patient breathing even and unlabored. No SOB or acute respiratory distress noted. Safety measure in place, bed is in the lowest level, bed is locked, alarm is on, side rails x2 are up, and call light is within reach. Will continue to monitor.
[2020-06-25] MEDS: ALPRAZOLAM 0.5 MG TABLET PO PRN (22:47)
--- NOTE | 2020-06-25 22:47 | NUR ---
Patient verbalizes anxiety. Administered Xanax per MD order. Will continue to monitor.
[2020-06-25 23:29] LABS: OSMOLALITY,URINE 785 mOS/kg (340-1090)
[2020-06-26] MEDS: BLOOD SUGAR DIAGNOSTIC 1 EACH STRIP IN SCH ×4 (00:45→12:03)
[2020-06-26] MEDS: CEFEPIME 2 GM in IV D5W 100 ML IV SCH (06:46)
[2020-06-26 07:51] LABS: CALCIUM, SERUM 8.9 mg/dL (8.5-10.1); CREATININE 0.5 mg/dL (0.6-1.3); POTASSIUM 3.3 mmol/L (3.5-5.1)
[2020-06-26 07:53] LABS: BASOPHILS % (AUTO) 0.9 % (0.0-2.0); EOSINOPHILS % (AUTO) 1.3 % (0.0-6.0); HEMATOCRIT 38 % (33-45); HEMOGLOBIN 12.6 g/dL (11.5-14.8); LYMPHOCYTES # (AUTO) 1.4 /CMM (0.8-4.8); LYMPHOCYTES % (AUTO) 39.9 % (20.0-44.0); MEAN CORPUSCULAR HGB CONC 33 g/dl (31.0-36.0); MEAN CORPUSCULAR VOLUME 103 fL (82-100); MONOCYTES # (AUTO) 0.8 /CMM (0.1-1.30); MONOCYTES % (AUTO) 23.2 % (2.0-12.0); NEUTROPHILS # (AUTO) 1.2 /CMM (1.8-8.9); NEUTROPHILS % (AUTO) 34.7 % (43.0-81.0); PLATELET COUNT (AUTO) 105 /CMM (150-450); RED BLOOD CELL COUNT(AUTO) 3.73 MIL/uL (4.0-5.2); WHITE BLOOD COUNT (AUTO) 3.6 K/uL (4.3-11.0)
[2020-06-26 08:00] VITALS: BP 106/61
[2020-06-26] MEDS ORDERED: POTASSIUM CHLORIDE 20 MEQ TAB.PRT.SR PO ONE (08:30)
--- NOTE | 2020-06-26 08:48 | NUR ---
RN CLOSING NOTE: Patient in bed resting comfortably. Patient breathing even and unlabored, no SOB or acute respiratory distress noted. Safety measure maintained, bed is in the lowest level, bed is locked, alarm is on, side rails x2 are up, and call light is within reach. Endorsed continuity of care to AM nurse.
[2020-06-26] MEDS: GABAPENTIN 400 MG CAPSULE PO SCH ×2 (09:03→12:00)
[2020-06-26] MEDS: MULTIVITAMINS,THERAGRAN 1 UDTAB TABLET PO SCH (09:03)
[2020-06-26] MEDS: FOLIC ACID 1 MG TABLET PO SCH (09:03)
[2020-06-26] MEDS: ESCITALOPRAM OXALATE (10 MG) 10 MG TABLET PO SCH (09:03)
[2020-06-26] MEDS: THIAMINE HCL 100 MG TABLET PO SCH (09:05)
--- NOTE | 2020-06-26 12:30 | NUR ---
MS/deck officer planning Exit care prepared, chart copied. Patient educated as to what each medication is for and possible side effects, stated understanding of both. Heplock and name bands removed.
--- NOTE | 2020-06-26 14:08 | NUR ---
MS/mastic sprayer Patient discharged to home in stable condition.
[2020-06-27 18:17] LABS: *SPE A/G RATIO 1.2 (0.7-1.7); *SPE ALBUMIN 2.9 g/dL (2.9-4.4); *SPE ALPHA-1-GLOBULIN 0.3 g/dL (0.0-0.4); *SPE ALPHA-2-GLOBULIN 0.6 g/dL (0.4-1.0); *SPE BETA GLOBULIN 0.8 g/dL (0.7-1.3); *SPE GLOBULIN, TOTAL 2.5 g/dL (2.2-3.9); *SPE M-SPIKE Not Observed g/dL (Not Observed); *SPEGAMMA GLOBULIN 0.8 g/dL (0.4-1.8)
[2020-06-28 16:11] LABS: *ANA ANTI-CENTROMERE B AB <0.2 AI (0.0-0.9); *ANA ANTI-DNA(DS) AB, QN <1 IU/mL (0-9); *ANA ANTI-JO-1 <0.2 AI (0.0-0.9); *ANA ANTICHROMATIN ANTIBODY <0.2 AI (0.0-0.9); *ANA RNP ANTIBODIES <0.2 AI (0.0-0.9); *ANA SJOGREN'S ANTI-SS-A <0.2 AI (0.0-0.9); *ANA SJOGREN'S ANTI-SS-B <0.2 AI (0.0-0.9); *ANAANTI-SCLERODERMA-70 AB <0.2 AI (0.0-0.9); *ANASMITH AB <0.2 AI (0.0-0.9)
== END 2020-06-26 14:00 | disposition home or self-care (01) | DRG 424 ==
LOC: ER 06:29 → MED 12:58
PROVIDERS: ADMIT Nurse Practitioner Acute Care; ATTEND Nurse Practitioner Acute Care
PROC: 05HY33Z Insertion of Infusion Device into Upper Vein, Percutaneous Approach (ICD-10-PCS; principal; 2020-06-26)
DX: E16.2 Hypoglycemia, unspecified (principal); F10.229 Alcohol dependence with intoxication, unspecified; E22.2 Syndrome of inappropriate secretion of antidiuretic hormone; G92 Toxic encephalopathy; D68.59 Other primary thrombophilia; E66.01 Morbid (severe) obesity due to excess calories; Z68.41 Body mass index [BMI] 40.0-44.9, adult; K70.30 Alcoholic cirrhosis of liver without ascites; E83.39 Other disorders of phosphorus metabolism; F41.9 Anxiety disorder, unspecified; F32.9 Major depressive disorder, single episode, unspecified; D69.6 Thrombocytopenia, unspecified; G62.9 Polyneuropathy, unspecified; Y90.4 Blood alcohol level of 80-99 mg/100 ml; D69.59 Other secondary thrombocytopenia; D61.818 Other pancytopenia; D72.820 Lymphocytosis (symptomatic); Z74.09 Other reduced mobility; E86.1 Hypovolemia; E87.6 Hypokalemia; J98.11 Atelectasis; Z20.828 Contact with and (suspected) exposure to other viral communicable diseases
CPT/HCPCS: 36410; 36415; 71045-TC; 76705-TC; 80048-TC; 80053-TC; 80061-TC; 80076-TC; 81001; 82140-TC; 82150-TC; 82247-TC; 82248-TC; 82436-TC; 82533; 82728-TC; 82784; 82962-TC; 83540-TC; 83690-TC; 83735-TC; 83935-TC; 84100-TC; 84133-TC; 84155; 84165; 84244; 84300-TC; 84443-TC; 85025-TC; 85610-TC; 85730-TC; 86225; 86235; 86334; 86431-TC; 86706; 86803; 87040-TC; 87081-TC; 87086-TC; 87340; 97116-TC; 97530-TC; C9803; G0378; G0480; J0692; J1442; J2060; J2405; J3411; J3480; J3490; J7030; J7042; J7050; J7060; Q2036

== ENCOUNTER 2021-03-05 01:37 | Inpatient (IN) | payer OTHER ==
[~2021-03-05] VITALS: Ht 160 cm; Wt 122.5 kg
[~2021-03-05 01:37] MED LIST: ALPR0.5T8 PO; ESCI10TA PO; GABA-536 PO
--- NOTE | 2021-03-05 02:00 | NUR ---
PATIENT BIBRA 839 FROM HOME FOR ETOH. PATIENT ADMITTED TO DRINKING "TONS" OF VODKA 3 HRS LAND ACQUISITION MANAGER WITH C/O OF SHAKING AND DRY MOUTH. PATIENT IS A/O X 4, RR EVEN AND UNLABORED, NO SIGNS OF SOB NOTED. PATIENT CONNECTED TO CARDAIC AND POX MONITOR.
[2021-03-05] MEDS ORDERED: IV NS 0.9% 1,000 ML BAG IV ONE (02:30)
[2021-03-05 02:42] LABS: BASOPHILS % (AUTO) 1.3 % (0.0-2.0); EOSINOPHILS % (AUTO) 0.5 % (0.0-6.0); HEMATOCRIT 46 % (33-45); HEMOGLOBIN 15.3 g/dL (11.5-14.8); LYMPHOCYTES # (AUTO) 1.2 K/uL (0.8-4.8); LYMPHOCYTES % (AUTO) 37.2 % (20.0-44.0); MEAN CORPUSCULAR HGB CONC 33 g/dl (31.0-36.0); MEAN CORPUSCULAR VOLUME 96 fL (82-100); MONOCYTES # (AUTO) 0.2 K/uL (0.1-1.30); MONOCYTES % (AUTO) 6.7 % (2.0-12.0); NEUTROPHILS # (AUTO) 1.7 K/uL (1.8-8.9); NEUTROPHILS % (AUTO) 54.3 % (43.0-81.0); PLATELET COUNT (AUTO) 98 K/uL (150-450); RED BLOOD CELL COUNT(AUTO) 4.82 MIL/uL (4.0-5.2); WHITE BLOOD COUNT (AUTO) 3.1 K/uL (4.3-11.0)
[2021-03-05 02:56] LABS: ALANINE AMINOTRANSFERASE 25 U/L (12-78); ALCOHOL, BLOOD 400 mg/dL (0-0); ALKALINE PHOSPHATASE 145 U/L (46-116); ASPARTATE AMINOTRANSFERASE 42 U/L (15-37); BILIRUBIN,DIRECT 0.3 mg/dL (0.0-0.2); BILIRUBIN,TOTAL 0.7 mg/dL (0.2-1.0); CALCIUM, SERUM 8.2 mg/dL (8.5-10.1); CARBON DIOXIDE 24 mmol/L (21-32); CHLORIDE 101 mmol/L (98-107); CREATININE 0.9 mg/dL (0.6-1.3); GLUCOSE 70 mg/dL (74-106); POTASSIUM 3.3 mmol/L (3.5-5.1); SODIUM SERUM 147 mmol/L (136-145); TOTAL PROTEIN, SERUM 7.9 g/dL (6.4-8.2); UREA NITROGEN, BLOOD 8 mg/dL (7-18)
[2021-03-05 03:02] LABS: ACETAMINOPHEN < 2 ug/ml (10-30)
--- NOTE | 2021-03-05 03:25 | NUR ---
URINE COLLECTED AND SENT TO LAB
[2021-03-05 03:45] LABS: BILIRUBIN,URINE Negative (NEGATIVE); COLOR,URINE YELLOW (YELLOW); LEUKOCYTE ESTERASE ,URINE Negative (NEGATIVE); NITRITE, URINE Negative (NEGATIVE); PROTEIN,URINE 30 mg/dl (NEGATIVE); UGLUCOSE Negative (NEGATIVE); UROBILINOGEN,URINE 0.2 EU/dL (0.2)
[2021-03-05 03:54] LABS: BACTERIA,URINE Few /HPF (None Seen); SQUAMOUS EPITHELIAL CELL,UR Moderate /HPF (None Seen)
[2021-03-05] MEDS ORDERED: ONDANSETRON HCL/PF - ER 4 MG/2 ML VIAL IV ONE (04:30)
[2021-03-05] MEDS ORDERED: ONDANSETRON 4 MG TAB.RAPDIS ONE ×2 (04:50→15:02)
[2021-03-05] MEDS ORDERED: ONDANSETRON 4 MG TAB.RAPDIS PO ONE (05:00)
[2021-03-05 05:14] LABS: BAND % (MANUAL) 1 % (0.0-5.0); EOSINOPHILS % (MANUAL) 1 % (0-4); LYMPHOCYTES % (MANUAL) 36 % (16-48); METAMYELOCYTES % 1 % (0-0); MONOCYTES % (MANUAL) 5 % (0-11.0); NEUTROPHILS % (MANUAL) 56 (42-76)
[2021-03-05] MEDS ORDERED: POTASSIUM CHLORIDE 20 MEQ TAB.PRT.SR PO ONE ×2 (06:00→06:09)
[2021-03-05] MEDS ORDERED: POTASSIUM CHLORIDE 10 MEQ TABLET.SA ONE (06:09)
--- NOTE | 2021-03-05 07:19 | NUR ---
ASSESSED PT ON BED AWAKE AND ALERT. NOT IN RESPIRATORY DISTRESS, V/S STABLE, KEPT RESTED AND COMFORTABLE. WILL CONTINUE TO MONITOR.
--- NOTE | 2021-03-05 11:35 | NUR ---
PT IN BED RESTING.
[2021-03-05] MEDS ORDERED: ONDANSETRON 4 MG TAB.RAPDIS SL ONE (15:00)
[2021-03-05] MEDS ORDERED: LORAZEPAM 1 MG TABLET PO ONE (15:00)
[2021-03-05] MEDS ORDERED: LORAZEPAM 1 MG TABLET ONE (15:01)
--- NOTE | 2021-03-05 15:07 | NUR ---
PT WAS NOTED HAVING TREMORS AND VERBALIZED THAT SHE IS NAUSEOUS. MD MADE AWARE. AND RECEIVED ORDERS TO GIVEN ATIVAN 2MG PO AND ZOFRAN 4MG PO. ORDERS NOTED AND CARRIED OUT
[2021-03-05] MEDS ORDERED: MIRT-91 PO (18:40)
[2021-03-06] MEDS ORDERED: ONDANSETRON HCL/PF - ER 4 MG/2 ML VIAL IV ONE (00:30)
[2021-03-06] MEDS ORDERED: ONDANSETRON HCL/PF 4 MG/2 ML VIAL ONE (00:32)
--- NOTE | 2021-03-06 00:35 | NUR ---
iv site left hand #22
--- NOTE | 2021-03-06 00:40 | NUR ---
pt c/o nausea, notified. orders for 4mg of zofran carried out.
--- NOTE | 2021-03-06 02:54 | NUR ---
pt resting at this time. needs attended. will cont to monitor.
[2021-03-06] MEDS ORDERED: LORAZEPAM 1 MG TABLET ONE (05:06)
--- NOTE | 2021-03-06 05:07 | NUR ---
pt c/o of anxiety, restless. requested medication. notified ER md. orders x1 po 1mg ativan carried out.
[2021-03-06] MEDS ORDERED: LORAZEPAM 1 MG TABLET PO ONE (05:30)
--- NOTE | 2021-03-06 07:29 | NUR ---
PATIENT A/OX4, BREATHING EVEN AND UNLABORED, NO SOB NOTED, NEEDS ATTENDED, PATIENT DENIES SUICIDAL IDEATION AT THIS TIME.
--- NOTE | 2021-03-06 07:34 | NUR ---
GOT BED 320-2
--- NOTE | 2021-03-06 07:42 | NUR ---
REPORT GIVEN TO DEMAR COMER FOR [facility].
--- NOTE | 2021-03-06 07:49 | NUR ---
CALLED DR. MCCARTY [phone] ABOUT GIVING ORDERS.
--- NOTE | 2021-03-06 09:01 | NUR ---
PATIENT A/OX4, TRANSFERRED TO ROOM 320-2 VIA ACLS PROTOCOL IN STABLE CONDITION. ENDORSED TO DEMAR COMER.
[2021-03-06 09:05] VITALS: BP 155/91
--- NOTE | 2021-03-06 10:51 | NUR ---
TELE ADMITTING NOTES PT ADMITTED TO UNIT AT 0900 VIA GURNEY ACCOMPANIED BY NAHOMI SULTANA FROM [facility]. PT IS A/O X4. ABLE TO MAKE NEEDS KNOWN, DENIES PAIN, DENIES SI/HI AT THIS TIME STATED THAT SHE FEELS MUCH BETTER TODAY. PT ORIENTED TO STAFF AND ROOM. PT WITH DX OF ALCOHOL WITHDRAWAL. ON ROOM AIR, TOLERATING WELL WITH NO SOB NOTED. PT PLACED ON TELE-MONITOR WITH READING OF NSR, HR ON THE 80'S NOTED, NO C/O CARDIAC DISTRESS VOICED. IV ACCESS NOTED ON LEFT HAND G#22 AND FLUSHES WELL. SAFETY MEASURES INITIATED: PT PLACED 1:1 SITTER, BED IN LOWEST LOCKED POSITION WITH SIDE-RAILS UP X2. CALL LIGHT WITHIN EASY REACH OF PT. WILL CONTINUE TO MONITOR PT ACCORDINGLY..
[2021-03-06 12:00] VITALS: BP 145/65
[2021-03-06] MEDS ORDERED: ACETAMINOPHEN 325 MG TABLET PO PRN (12:30)
[2021-03-06] MEDS ORDERED: Z GUARD REMEDY 2 OZ OINT TP PRN (12:30)
[2021-03-06] MEDS ORDERED: BISACODYL SUPP (10 MG) 10 MG/SUPP.RECT SUPP.RECT RC ONE (12:30)
[2021-03-06] MEDS ORDERED: MAGNESIUM HYDROXIDE 30 ML UDC PO PRN (12:30)
[2021-03-06] MEDS ORDERED: ONDANSETRON HCL/PF 4 MG/2 ML VIAL IVP PRN (12:30)
[2021-03-06] MEDS ORDERED: MAG HYDROX/AL HYDROX/SIMETH 30 ML UDC PO PRN (12:30)
--- NOTE | 2021-03-06 13:59 | NUR ---
RN NOTES PT SEEN BY DR MCCARTY, REPORTED THAT PT HAD CONSTIPATION X3 DAYS. DR MCCARTY WITH ORDER TO GIVE BISACODYL 10MH SUPPOSITORY AND WAS ADMINISTERED. PT DID BOWEL MOVEMENT X2 AT THIS TIME. WILL CONTINUE TO MONITOR...
[2021-03-06 16:00] VITALS: BP 137/75
--- NOTE | 2021-03-06 18:37 | NUR ---
TELE CLOSING NOTES PT IN BED AWAKE AND WATCHING TV AT THIS TIME. HOB ELEVATED. A/O X4. ABLE TO MAKE NEEDS KNOWN. ON ROOM AIR, TOLERATING WELL WITH NO SOB NOTED. ON TELE-MONITOR WITH CURRENT READING OF NSR, HR ON THE 80-90'S NOTED, NO C/O CARDIAC DISTRESS VOICED. IV ACCESS LEFT HAND G#22 INTACT, PATENT AND FLUSHES WELL. ALL NEEDS AND CARE PROVIDED WELL. SAFETY MEASURES MAINTAINED: BED IN LOWEST LOCKED POSITION WITH SIDE-RAILS UP X2. CALL LIGHT WITHIN EASY REACH OF PT. WILL ENDORSE SOSA TO REPRODUCTION ARTIST
--- NOTE | 2021-03-06 19:15 | NUR ---
FAST FOOD TEAM MEMBER NOTES RECEIVED ON BED A/O X3,BREATHING REGULAR,NOT IN ANY FORM OF DISTRESS.PATIENT WANTS TO TRANSFER TO OTHER ROOM,CANT SLEEP WITH ROOMMATE,TOO NOISY.DENIES SI,FOLLOW INSTRUCTIONS.CALL LIGHT IN REACH,NEEDS ANTICIPATED.
[2021-03-06 20:00] VITALS: BP 139/87
--- NOTE | 2021-03-06 20:45 | NUR ---
SEMICONDUCTOR WAFERS TESTER NOTES SALINE LOCK ACCIDENTALLY PULLED OUT,OFFERED TO INSERT NEW SALINE LOCK BUT REFUSED,CLAIMED SHE'S LEAVING TOMORROW AND IV MEDS/FLUIDS TONIGHT.
[2021-03-07] VITALS: BP_SYST 151; BP_DIAS 100; BP_DIAS 80
--- NOTE | 2021-03-07 00:30 | NUR ---
APPLICATION DEVELOPER MANAGER NOTES C/O MILD HEADACHE,TYLENOL 650MG PO GIVEN FOR MILD PAIN
[2021-03-07 04:00] VITALS: BP 128/85
--- NOTE | 2021-03-07 06:17 | NUR ---
WINDOW GLAZIER HELPER NOTES FAIRLY RESTED AT NIGHT,NO ETOH WITHDRAWAL NOTED.FOR DISCHARGE PLANNING RO DETOX REHAB PER PATIENT,CASE MANAGEMENT FOR PLACEMENT.NO DISTRESS.
--- NOTE | 2021-03-07 07:44 | NUR ---
MENTAL HEALTH WORKER OPENING NOTES RECEIVED PATIENT ASLEEP IN BED, EASY TO AROUSE. ALERT AND ORIENTED X 4. NO SIGNS OR SYMPTOMS OF DISTRESS NOTED. NO SOB. BREATHING IS EVEN AND UNLABORED. PATIENT TOLERATING WELL ON ROOM AIR. ON TELE EXTERNAL MONITOR WITH SR IN 70'S. IV ACCESS LHAND#22. SAFETY MEASURES IN PLACE WITH BED LOCKED AT LOW POSITION AND SIDE RAILS UP X 2. WILL CONTINUE TO MONITOR PATIENT THROUGHOUT SHIFT.
[2021-03-07 08:00] VITALS: BP 157/77
--- NOTE | 2021-03-07 09:00 | NUR ---
TELE DISCHARGE NOTES PATIENT WAS DISCHARGED WITH STABLE VITAL SIGNS. NO SIGNS OR SYMPTOMS OF DISTRESS NOTED. NO SOB. ALL DISCHARGE INSTRUCTIONS REVIEWED WITH PATIENT AND SIGNED. PATIENT VERBALIZED UNDERSTANDING. ALL QUESTIONS ANSWERED. IV ACCESS AND ID BAND REMOVED PRIOR TO LEAVING UNIT. PATIENT WAS PICKED UP BY FAMILY AT THIS TIME.
== END 2021-03-07 11:30 | disposition home or self-care (01) | DRG 775 ==
LOC: ER 01:38 → TELE 03-06 07:40 → MED 03-07 11:22
DX: F10.129 Alcohol abuse with intoxication, unspecified (principal); R45.851 Suicidal ideations; E66.01 Morbid (severe) obesity due to excess calories; F32.9 Major depressive disorder, single episode, unspecified; Z68.42 Body mass index [BMI] 45.0-49.9, adult; Y90.8 Blood alcohol level of 240 mg/100 ml or more; E87.6 Hypokalemia; Z20.822 Contact with and (suspected) exposure to COVID-19; E87.1 Hypo-osmolality and hyponatremia; F41.9 Anxiety disorder, unspecified; I10 Essential (primary) hypertension; Z79.899 Other long term (current) drug therapy; G62.9 Polyneuropathy, unspecified
CPT/HCPCS: 36415; 71045-TC; 80048-TC; 80076-TC; 81001; 82962-TC; 83735-TC; 83880; 84484-TC; 84702-TC; 85025-TC; 87081-TC; A4349; C9803; G0378; G0480; J2405; J7030; Q0162